=== PATIENT | female | born 1975 | race Caucasian/White ===

== ENCOUNTER 2017-03-10 08:33 | Emergency (ER) | payer MEDICAID ==
[~2017-03-10] VITALS: Ht 170.2 cm; Wt 67.0 kg
[2017-03-10] MEDS ORDERED: OXYcodone/APAP 5/325MG TABLET PO ONE (10:00)
[2017-03-10] MEDS ORDERED: OXYcodone/APAP 5/325MG TABLET ONE (10:06)
[2017-03-10 10:07] VITALS: BP 117/83
[2017-03-10 10:18] LABS: BASOPHILS # (AUTO) 0.03 x10^3/uL (0-0.1); BASOPHILS % (AUTO) 1 % (0-1); EOSINOPHILS # (AUTO) 0.01 x10^3/uL (0-0.4); EOSINOPHILS % (AUTO) 0 % (1-7); LYMPHOCYTES % (AUTO) 43 % (22-44); MD NO; MEAN CORPUSCULAR HEMOGLOBIN 31.6 pg (27.0-34.8); MEAN CORPUSCULAR VOLUME 93.1 fL (80-100); MEAN PLATELET VOLUME 9.2 fL (7.4-10.4); MONOCYTES # (AUTO) 0.45 x10^3/uL (0.2-0.8); MONOCYTES % (AUTO) 12 % (2-9); NEUTROPHILS # (AUTO) 1.64 x10^3/uL (1.8-6.8); NEUTROPHILS % (AUTO) 44 % (42-75); PLATELET COUNT 192 x10^3/uL (130-400); RED BLOOD COUNT 4.29 x10^6/uL (3.82-5.3)
[2017-03-10 10:30] LABS: ALBUMIN 3.9 g/dL (3.4-5.0); ANION GAP 7 mmol/L (5-15); CALCIUM 8.6 mg/dL (8.5-10.1); CHLORIDE 108 mmol/L (98-107); CREATININE 0.68 mg/dL (0.55-1.02)
== END 2017-03-10 11:39 | disposition home or self-care (01) ==
LOC: ED 09:25
DX: M54.31 Sciatica, right side (principal); B34.9 Viral infection, unspecified; F17.200 Nicotine dependence, unspecified, uncomplicated
CPT/HCPCS: 36415; 71045; 80048; 82040; 85025; 99285

== ENCOUNTER 2017-12-24 18:47 | Emergency (ER) | payer MEDICAID ==
[~2017-12-24] VITALS: Ht 170.2 cm; Wt 69.9 kg
[2017-12-24] MEDS ORDERED: SODIUM CHLORIDE FLUSH 10ML SYR IVF ONE (19:00)
[2017-12-24 19:37] LABS: ALANINE AMINOTRANSFERASE 29 U/L (12-78); ALBUMIN 4.5 g/dL (3.4-5.0); ANION GAP 8 mmol/L (5-15); BASOPHILS # (AUTO) 0.06 x10^3/uL (0-0.1); BASOPHILS % (AUTO) 1 % (0-1); CHLORIDE 111 mmol/L (98-107); CREATININE 0.87 mg/dL (0.55-1.02); EOSINOPHILS # (AUTO) 0.14 x10^3/uL (0-0.4); EOSINOPHILS % (AUTO) 2 % (1-7); LYMPHOCYTES # (AUTO) 2.92 x10^3/uL (1-3.4); LYMPHOCYTES % (AUTO) 34 % (22-44); MD NO; MEAN CORPUSCULAR HEMOGLOBIN 32.1 pg (27.0-34.8); MEAN CORPUSCULAR HGB CONC 34.4 g/dL (32.4-35.8); MEAN CORPUSCULAR VOLUME 93.4 fL (80-100); MEAN PLATELET VOLUME 9.3 fL (7.4-10.4); MONOCYTES # (AUTO) 0.68 x10^3/uL (0.2-0.8); MONOCYTES % (AUTO) 8 % (2-9); NEUTROPHILS # (AUTO) 4.81 x10^3/uL (1.8-6.8); NEUTROPHILS % (AUTO) 56 % (42-75); PLATELET COUNT 303 x10^3/uL (130-400); RED BLOOD COUNT 4.14 x10^6/uL (3.82-5.3); RED CELL DISTRIBUTION WIDTH 13.4 % (9.6-15.2)
[2017-12-24 19:41] LABS: ALKALINE PHOSPHATASE 81 U/L (45-117); BILIRUBIN,TOTAL 0.4 mg/dL (0.2-1.0); TOTAL PROTEIN 8.6 g/dL (6.4-8.2)
[2017-12-24 19:52] LABS: MICROSCOPIC NOT IND
[2017-12-24 19:57] LABS: TROPONIN I < 0.015 ng/mL (0.000-0.045)
[2017-12-24 19:58] LABS: CULTURE INDICATED? NO
[2017-12-24 20:22] VITALS: BP 136/82
== END 2017-12-24 20:42 | disposition home or self-care (01) ==
LOC: ED 19:35
DX: R06.00 Dyspnea, unspecified (principal)
CPT/HCPCS: 36415; 71046; 80053; 81003; 84484; 84703; 85025; 93005; 99285

== ENCOUNTER 2018-01-01 09:54 | Emergency (ER) | payer MEDICAID ==
[~2018-01-01] VITALS: Ht 170.2 cm; Wt 69.3 kg
[2018-01-01 10:04] VITALS: BP 146/89
== END 2018-01-01 13:09 | disposition home or self-care (01) ==
LOC: ED 12:08
DX: S63.511A Sprain of carpal joint of right wrist, initial encounter (principal); F17.200 Nicotine dependence, unspecified, uncomplicated; W19.XXXA Unspecified fall, initial encounter; Y93.89 Activity, other specified; Y92.328 Other athletic field as the place of occurrence of the external cause; Y99.8 Other external cause status
CPT/HCPCS: 99284

== ENCOUNTER 2018-10-20 12:26 | Emergency (ER) | payer MEDICAID ==
[~2018-10-20] VITALS: Ht 170.2 cm; Wt 69.5 kg
[2018-10-20 12:50] VITALS: BP 149/90
== END 2018-10-20 15:11 | disposition home or self-care (01) ==
LOC: ED 14:15
DX: S83.92XA Sprain of unspecified site of left knee, initial encounter (principal); S80.02XA Contusion of left knee, initial encounter; Z90.710 Acquired absence of both cervix and uterus; W18.30XA Fall on same level, unspecified, initial encounter; Y93.89 Activity, other specified; Y92.331 Roller skating rink as the place of occurrence of the external cause; Y99.8 Other external cause status
CPT/HCPCS: 99283